=== PATIENT | male | born 1950 | race African-American/Black ===

== ENCOUNTER 2018-12-02 12:40 | Inpatient (IN) | payer MEDICAID, OTHER ==
[2018-12-02] VITALS (8 sets, daily range): BP systolic 113–193; BP diastolic 72–132
[~2018-12-02] VITALS: Ht 175.3 cm; Wt 94.3 kg
[2018-12-02] MEDS ORDERED: methylPREDNISolone SOD SUCC 125 MG/2 ML VL ONE (12:41)
[2018-12-02] MEDS ORDERED: LORazepam 2MG/ML-1ML VIAL ONE (12:45)
[2018-12-02] MEDS ORDERED: SUCCINYLCHOLINE CHLORIDE 20 MG/ML 10ML VIAL IV ONE (12:46)
[2018-12-02] MEDS ORDERED: ETOMIDATE (2MG/ML) 20ML VIAL IV ONE (12:46)
[2018-12-02] MEDS ORDERED: EPINEPHrine HCL 1 MG/10 ML SYRG ONE (12:49)
[2018-12-02] MEDS ORDERED: PROPOFOL 100 ML IV ONE (13:04)
[2018-12-02] MEDS ORDERED: SODIUM CHLORIDE 0.9% 1,000 ML IV ONE (13:26)
[2018-12-02] MEDS ORDERED: ALBUTEROL SULF 2.5 MG/0.5ML(0.5%) NEB SOLN NEB ONE (13:30)
[2018-12-02] MEDS ORDERED: PIPERACILLIN-TAZOB 3.375GM 100 ML IV ONE (13:30)
[2018-12-02] MEDS ORDERED: VANCOMYCIN 1GM/250ML 250 ML IV ONE (13:30)
[2018-12-02] MEDS ORDERED: NOREPINEPHRINE 8 MG/250ML KIT 250 ML IV ONE (13:36)
[2018-12-02 13:40] LABS: Basophils # (auto) 0.1 uL; Eosinophils # (auto) 0.2 uL; Eosinophils % (auto) 1.9 % (0.0-7.0); Hematocrit 47.8 % (41.0-53.0); Hemoglobin 15.4 g/dL (13.5-17.5); Lymphocytes # (auto) 4.6 uL; Lymphocytes % (auto) 38.6 % (10.0-50.0); Mean Corpuscular Hemoglobin 30.1 pg (28.0-32.0); Mean Corpuscular Hgb Conc. 32.3 g/dL (32.0-36.0); Mean Corpuscular Volume 93.4 fL (80.0-100.0); Monocytes % (auto) 8.8 % (0.0-12.0); Neutrophils # (auto) 5.9 uL; Neutrophils % (auto) 49.7 % (37.0-80.0); Nucleated Red Blood Cells % 0.1 %; Platelet Count (auto) 320 10^3/uL (140-450); Red Blood Cells 5.12 10^6/uL (4.5-5.90); Red Cell Distribution Width 14.6 % (11.8-14.3); White Blood Cell 11.8 10^3/uL (4.4-10.8)
[2018-12-02] MEDS: PROPOFOL 100 ML IV SCH (13:50)
[2018-12-02] MEDS: MIDAZOLAM DRIP 50 mg/50mL 50 ML IV SCH (13:50)
[2018-12-02 13:53] LABS: INR 1.05 (0.9-1.15); Partial Thromboplastin Time 25.2 sec (23.78-33.04); Prothrombin Time 11.2 sec (9.27-12.13)
[2018-12-02 13:57] LABS: Potassium 3.2 mmol/L (3.5-5.1)
[2018-12-02 13:58] LABS: Albumin 3.3 g/dL (3.4-5.0); Calcium 8.1 mg/dL (8.5-10.1)
[2018-12-02] MEDS: NOREPINEPHRINE 8 MG/250ML KIT 250 ML IV SCH (14:00)
[2018-12-02 14:04] LABS: BUN/Creatinine Ratio 5.1; Bilirubin, Total 0.6 mg/dL (0.2-1.0); Total Protein 7.3 g/dL (6.4-8.2)
[2018-12-02 14:19] LABS: Lactic Acid w/Reflex 8.9 mmol/L (0.4-2.0)
[2018-12-02] MEDS ORDERED: NITROGLYCERIN 0.4 MG SL TAB SL PRN (15:15)
[2018-12-02] MEDS ORDERED: MORPHINE SULFATE 4 MG/ML SYR/VIAL IV PRN (15:15)
[2018-12-02] MEDS ORDERED: DEXTROSE (50%) 50ML SYRG IV PRN (15:30)
[2018-12-02] MEDS ORDERED: FUROSEMIDE 40 MG/4 ML VIAL IV ONE (15:30)
[2018-12-02] MEDS ORDERED: ENOXAPARIN SOD 40 MG/0.4 ML SYRINGE SC ONE (15:30)
[2018-12-02] MEDS: DOBUTamine 1000MCG/ML 250 ML IV SCH (16:31)
[2018-12-02] MEDS: POTASSIUM CHL 20MEQ/100ML 100 ML IV SCH ×2 (16:33→18:17)
[2018-12-02 16:42] LABS: Urine Amorphous Crystal FEW /hpf (None Seen); Urine Bacteria NONE SEEN /hpf (None Seen); Urine Blood Negative /uL (Negative); Urine Specific Gravity 1.017 (1.001-1.035); Urine Sperm PRESENT /hpf (None Seen); Urine WBC 112 /hpf (0 - 3)
[2018-12-02] MEDS: ACCU-CHEK COMFORT CURVE STRIP VI SCH ×2 (16:59→23:01)
[2018-12-02] MEDS: InsuLIN REG 1unit/0.01ml Soln (100units/ml) SC SCH ×2 (17:03→23:06)
[2018-12-02] MEDS: IPRATROPIUM BROM 0.5 MG/2.5ML INH SOL NEB SCH (18:28)
[2018-12-02] MEDS: ALBUTEROL SULF 2.5 MG/0.5ML(0.5%) NEB SOLN NEB SCH (18:28)
[2018-12-02] MEDS: cefTRIAXone 1GM/50ML D5W 50 ML IV SCH (21:15)
[2018-12-02] MEDS ORDERED: ENOXAPARIN SOD 100 MG/1 ML SYRINGE SC ONE (23:45)
[2018-12-03] VITALS (11 sets, daily range): BP systolic 96–139; BP diastolic 58–84
[2018-12-03] MEDS: IPRATROPIUM BROM 0.5 MG/2.5ML INH SOL NEB SCH ×4 (00:29→18:30)
[2018-12-03] MEDS: ALBUTEROL SULF 2.5 MG/0.5ML(0.5%) NEB SOLN NEB SCH ×4 (00:29→18:30)
[2018-12-03] MEDS: DOBUTamine 1000MCG/ML 250 ML IV SCH ×3 (03:42→22:09)
[2018-12-03] MEDS: fentaNYL Drip 2500mCg/250mlNS 250 ML IV SCH ×2 (05:34→15:49)
[2018-12-03 06:09] LABS: Basophils # (auto) 0.1 uL; Basophils % (auto) 0.5 % (0.0-2.0); Eosinophils # (auto) 0 uL; Hematocrit 48.9 % (41.0-53.0); Hemoglobin 15.9 g/dL (13.5-17.5); Lymphocytes # (auto) 1.5 uL; Lymphocytes % (auto) 10.2 % (10.0-50.0); Mean Corpuscular Hemoglobin 30.4 pg (28.0-32.0); Mean Corpuscular Hgb Conc. 32.5 g/dL (32.0-36.0); Mean Corpuscular Volume 93.4 fL (80.0-100.0); Monocytes # (auto) 1.7 uL; Monocytes % (auto) 11.2 % (0.0-12.0); Neutrophils # (auto) 11.5 uL; Neutrophils % (auto) 78.1 % (37.0-80.0); Nucleated Red Blood Cells % 0.1 %; Platelet Count (auto) 282 10^3/uL (140-450); Red Blood Cells 5.23 10^6/uL (4.5-5.90); Red Cell Distribution Width 14.8 % (11.8-14.3); White Blood Cell 14.7 10^3/uL (4.4-10.8)
[2018-12-03 06:25] LABS: INR 1.02 (0.9-1.15); Partial Thromboplastin Time 30.6 sec (23.78-33.04); Prothrombin Time 10.9 sec (9.27-12.13)
[2018-12-03 06:28] LABS: Calcium 8.5 mg/dL (8.5-10.1); Magnesium 2.3 mg/dL (1.6-2.6)
[2018-12-03 06:34] LABS: BUN/Creatinine Ratio 6.3
[2018-12-03] MEDS: InsuLIN REG 1unit/0.01ml Soln (100units/ml) SC SCH ×4 (07:00→22:00)
[2018-12-03] MEDS: ACCU-CHEK COMFORT CURVE STRIP VI SCH ×4 (07:00→22:00)
[2018-12-03] MEDS: cefTRIAXone 1GM/50ML D5W 50 ML IV SCH ×2 (10:00→20:39)
[2018-12-03] MEDS: FUROSEMIDE 40 MG/4 ML VIAL IV SCH (10:00)
[2018-12-03] MEDS: AZITHROMYCIN 500MG/ 250ML 250 ML IV SCH (10:30)
[2018-12-03 12:54] LABS: Lactic Acid w/Reflex 2.3 mmol/L (0.4-2.0)
[2018-12-03] MEDS: MIDAZOLAM DRIP 50 mg/50mL 50 ML IV SCH ×2 (13:59→16:01)
[2018-12-03] MEDS: PROPOFOL 100 ML IV SCH ×2 (13:59→15:00)
[2018-12-03] MEDS: NOREPINEPHRINE 8 MG/250ML KIT 250 ML IV SCH (14:00)
[2018-12-04] VITALS (13 sets, daily range): BP systolic 125–142; BP diastolic 78–86
[2018-12-04] MEDS: IPRATROPIUM BROM 0.5 MG/2.5ML INH SOL NEB SCH ×3 (06:10→18:00)
[2018-12-04] MEDS: ALBUTEROL SULF 2.5 MG/0.5ML(0.5%) NEB SOLN NEB SCH ×3 (06:10→18:00)
[2018-12-04 06:34] LABS: Basophils # (auto) 0.1 uL; Basophils % (auto) 0.4 % (0.0-2.0); Eosinophils # (auto) 0 uL; Eosinophils % (auto) 0.1 % (0.0-7.0); Hematocrit 44.8 % (41.0-53.0); Hemoglobin 14.8 g/dL (13.5-17.5); Lymphocytes # (auto) 1.4 uL; Lymphocytes % (auto) 6.3 % (10.0-50.0); Mean Corpuscular Hgb Conc. 33.1 g/dL (32.0-36.0); Mean Corpuscular Volume 90.6 fL (80.0-100.0); Monocytes # (auto) 3.2 uL; Monocytes % (auto) 14.7 % (0.0-12.0); Neutrophils # (auto) 17.2 uL; Neutrophils % (auto) 78.5 % (37.0-80.0); Platelet Count (auto) 279 10^3/uL (140-450); Red Blood Cells 4.94 10^6/uL (4.5-5.90); Red Cell Distribution Width 14.8 % (11.8-14.3); White Blood Cell 21.9 10^3/uL (4.4-10.8)
[2018-12-04 06:48] LABS: Potassium 4.7 mmol/L (3.5-5.1)
[2018-12-04 06:51] LABS: BUN/Creatinine Ratio 8.1
[2018-12-04 06:53] LABS: Bilirubin, Total 0.7 mg/dL (0.2-1.0)
[2018-12-04] MEDS: ACCU-CHEK COMFORT CURVE STRIP VI SCH ×4 (09:00→22:10)
[2018-12-04] MEDS: DOBUTamine 1000MCG/ML 250 ML IV SCH ×2 (09:15→19:22)
[2018-12-04] MEDS: InsuLIN REG 1unit/0.01ml Soln (100units/ml) SC SCH ×4 (10:14→22:14)
[2018-12-04] MEDS: cefTRIAXone 1GM/50ML D5W 50 ML IV SCH ×2 (10:20→22:20)
[2018-12-04] MEDS: FUROSEMIDE 40 MG/4 ML VIAL IV SCH (10:20)
[2018-12-04] MEDS: AZITHROMYCIN 500MG/ 250ML 250 ML IV SCH (10:20)
[2018-12-04] MEDS: PANTOPRAZOLE 40 MG/10 ML VIAL IV SCH (10:20)
[2018-12-04] MEDS ORDERED: LIDOCAINE 2%HCL (LOCAL ANESTH.) INJ 20ML MDV ONE (14:40)
[2018-12-04] MEDS ORDERED: HEPARIN IN NS 1000Units/500mL 0 ML ONE (14:40)
[2018-12-04] MEDS ORDERED: IODIXANOL 320MG/ML 100ML BTL IV ONE (14:40)
[2018-12-04] MEDS: fentaNYL Drip 2500mCg/250mlNS 250 ML IV SCH (16:37)
[2018-12-04] MEDS: NOREPINEPHRINE 8 MG/250ML KIT 250 ML IV SCH (16:37)
[2018-12-04] MEDS ORDERED: DIGOXIN (250MCG/ML) 2 ML AMPULE IV ONE (20:45)
[2018-12-05] VITALS (89 sets, daily range): BP systolic 93–148; BP diastolic 54–99
[2018-12-05] MEDS: PROPOFOL 100 ML IV SCH ×6 (02:55→22:30)
[2018-12-05 04:02] LABS: Basophils # (auto) 0.1 uL; Basophils % (auto) 0.5 % (0.0-2.0); Eosinophils # (auto) 0.1 uL; Eosinophils % (auto) 0.3 % (0.0-7.0); Hematocrit 43.3 % (41.0-53.0); Hemoglobin 14.3 g/dL (13.5-17.5); Lymphocytes # (auto) 2.2 uL; Lymphocytes % (auto) 12.6 % (10.0-50.0); Mean Corpuscular Volume 90.8 fL (80.0-100.0); Monocytes # (auto) 2.8 uL; Monocytes % (auto) 16.1 % (0.0-12.0); Neutrophils # (auto) 12.2 uL; Neutrophils % (auto) 70.5 % (37.0-80.0); Nucleated Red Blood Cells % 0.1 %; Platelet Count (auto) 290 10^3/uL (140-450); Red Blood Cells 4.77 10^6/uL (4.5-5.90); Red Cell Distribution Width 14.6 % (11.8-14.3); White Blood Cell 17.3 10^3/uL (4.4-10.8)
[2018-12-05 04:29] LABS: Albumin 2.9 g/dL (3.4-5.0); BUN/Creatinine Ratio 10.6; Bilirubin, Total 0.7 mg/dL (0.2-1.0); Calcium 8.3 mg/dL (8.5-10.1); Potassium 3.9 mmol/L (3.5-5.1); Total Protein 7.2 g/dL (6.4-8.2)
[2018-12-05] MEDS: DOBUTamine 1000MCG/ML 250 ML IV SCH (04:48)
[2018-12-05] MEDS: IPRATROPIUM BROM 0.5 MG/2.5ML INH SOL NEB SCH ×3 (06:02→18:16)
[2018-12-05] MEDS: ALBUTEROL SULF 2.5 MG/0.5ML(0.5%) NEB SOLN NEB SCH ×3 (06:02→18:16)
[2018-12-05] MEDS: InsuLIN REG 1unit/0.01ml Soln (100units/ml) SC SCH ×4 (06:49→22:00)
[2018-12-05] MEDS: ACCU-CHEK COMFORT CURVE STRIP VI SCH ×4 (06:49→22:00)
[2018-12-05] MEDS ORDERED: IODIXANOL 320MG/ML 100ML BTL IV ONE (08:19)
[2018-12-05] MEDS ORDERED: ATROPINE SULF 1 MG/10ml SYR ONE (08:24)
[2018-12-05] MEDS ORDERED: EPINEPHrine HCL 1 MG/10 ML SYRG ONE (08:24)
[2018-12-05] MEDS ORDERED: FUROSEMIDE 20 MG/2 ML VIAL ONE (08:34)
[2018-12-05] MEDS: cefTRIAXone 1GM/50ML D5W 50 ML IV SCH ×2 (09:00→20:50)
[2018-12-05] MEDS: FUROSEMIDE 40 MG/4 ML VIAL IV SCH ×4 (10:00→19:30)
[2018-12-05] MEDS: LISINOPRIL 10 MG TAB NG SCH ×2 (10:02→21:51)
[2018-12-05] MEDS: PANTOPRAZOLE 40 MG/10 ML VIAL IV SCH (10:02)
[2018-12-05] MEDS: AZITHROMYCIN 500MG/ 250ML 250 ML IV SCH (10:02)
[2018-12-05] MEDS: CARVEDILOL 3.125 MG TAB NG SCH ×2 (10:02→21:52)
[2018-12-05] MEDS ORDERED: Glucerna 1.2 Cal 1Liter BOTTLE GT SCH (11:15)
[2018-12-05] MEDS: MIDAZOLAM DRIP 50 mg/50mL 50 ML IV SCH (12:30)
[2018-12-05] MEDS: NOREPINEPHRINE 8 MG/250ML KIT 250 ML IV SCH (12:31)
[2018-12-05] MEDS: fentaNYL Drip 2500mCg/250mlNS 250 ML IV SCH (15:49)
[2018-12-06] VITALS (79 sets, daily range): BP systolic 88–155; BP diastolic 46–116
[2018-12-06] MEDS: IPRATROPIUM BROM 0.5 MG/2.5ML INH SOL NEB SCH ×4 (00:20→19:45)
[2018-12-06] MEDS: ALBUTEROL SULF 2.5 MG/0.5ML(0.5%) NEB SOLN NEB SCH ×4 (00:20→19:45)
[2018-12-06] MEDS: PROPOFOL 100 ML IV SCH ×2 (01:23→05:08)
[2018-12-06 04:01] LABS: Basophils # (auto) 0.1 uL; Basophils % (auto) 0.5 % (0.0-2.0); Eosinophils # (auto) 0.1 uL; Eosinophils % (auto) 1.1 % (0.0-7.0); Hematocrit 47.5 % (41.0-53.0); Hemoglobin 15.4 g/dL (13.5-17.5); Lymphocytes # (auto) 2.4 uL; Lymphocytes % (auto) 17.8 % (10.0-50.0); Mean Corpuscular Hemoglobin 29.8 pg (28.0-32.0); Mean Corpuscular Hgb Conc. 32.4 g/dL (32.0-36.0); Mean Corpuscular Volume 92.1 fL (80.0-100.0); Monocytes # (auto) 1.9 uL; Monocytes % (auto) 14.3 % (0.0-12.0); Neutrophils # (auto) 8.8 uL; Neutrophils % (auto) 66.3 % (37.0-80.0); Nucleated Red Blood Cells % 0.1 %; Platelet Count (auto) 304 10^3/uL (140-450); Red Blood Cells 5.15 10^6/uL (4.5-5.90); Red Cell Distribution Width 14.6 % (11.8-14.3); White Blood Cell 13.2 10^3/uL (4.4-10.8)
[2018-12-06 04:02] LABS: Albumin 3.1 g/dL (3.4-5.0); Calcium 8.7 mg/dL (8.5-10.1); Potassium 3.9 mmol/L (3.5-5.1)
[2018-12-06 04:06] LABS: BUN/Creatinine Ratio 16.7; Bilirubin, Total 0.6 mg/dL (0.2-1.0); Total Protein 7.7 g/dL (6.4-8.2)
[2018-12-06] MEDS: ACCU-CHEK COMFORT CURVE STRIP VI SCH ×4 (07:00→22:01)
[2018-12-06] MEDS: InsuLIN REG 1unit/0.01ml Soln (100units/ml) SC SCH ×4 (07:00→22:00)
[2018-12-06] MEDS: cefTRIAXone 1GM/50ML D5W 50 ML IV SCH ×2 (09:17→21:00)
[2018-12-06] MEDS: LISINOPRIL 10 MG TAB NG SCH ×2 (09:46→21:49)
[2018-12-06] MEDS: PANTOPRAZOLE 40 MG/10 ML VIAL IV SCH (09:46)
[2018-12-06] MEDS: CARVEDILOL 3.125 MG TAB NG SCH ×3 (09:46→21:50)
[2018-12-06] MEDS: MIDAZOLAM DRIP 50 mg/50mL 50 ML IV SCH (13:50)
[2018-12-06] MEDS: NOREPINEPHRINE 8 MG/250ML KIT 250 ML IV SCH (14:00)
[2018-12-06] MEDS: fentaNYL Drip 2500mCg/250mlNS 250 ML IV SCH (14:06)
[2018-12-06] MEDS: FUROSEMIDE 40 MG/4 ML VIAL IV SCH (18:00)
[2018-12-07] VITALS (25 sets, daily range): BP systolic 87–146; BP diastolic 48–78
[2018-12-07 03:48] LABS: Basophils # (auto) 0.1 uL; Basophils % (auto) 0.4 % (0.0-2.0); Eosinophils # (auto) 0.5 uL; Eosinophils % (auto) 3.4 % (0.0-7.0); Hematocrit 49.3 % (41.0-53.0); Hemoglobin 16.4 g/dL (13.5-17.5); Lymphocytes # (auto) 2.2 uL; Lymphocytes % (auto) 14.9 % (10.0-50.0); Mean Corpuscular Hemoglobin 30.3 pg (28.0-32.0); Mean Corpuscular Hgb Conc. 33.2 g/dL (32.0-36.0); Monocytes % (auto) 13.2 % (0.0-12.0); Neutrophils # (auto) 10.1 uL; Neutrophils % (auto) 68.1 % (37.0-80.0); Nucleated Red Blood Cells % 0.1 %; Platelet Count (auto) 284 10^3/uL (140-450); Red Blood Cells 5.42 10^6/uL (4.5-5.90); Red Cell Distribution Width 14.3 % (11.8-14.3); White Blood Cell 14.9 10^3/uL (4.4-10.8)
[2018-12-07 04:12] LABS: Albumin 3.3 g/dL (3.4-5.0); Potassium 3.3 mmol/L (3.5-5.1)
[2018-12-07 04:14] LABS: BUN/Creatinine Ratio 22.7
[2018-12-07 04:17] LABS: Bilirubin, Total 1.1 mg/dL (0.2-1.0); Total Protein 8.2 g/dL (6.4-8.2)
[2018-12-07] MEDS ORDERED: POTASSIUM CHL 20 Meq TABLET PO ONE ×2 (05:00→11:45)
[2018-12-07] MEDS: FUROSEMIDE 40 MG/4 ML VIAL IV SCH ×2 (06:24→17:33)
[2018-12-07] MEDS: ALBUTEROL SULF 2.5 MG/0.5ML(0.5%) NEB SOLN NEB SCH ×4 (06:25→19:28)
[2018-12-07] MEDS: IPRATROPIUM BROM 0.5 MG/2.5ML INH SOL NEB SCH ×4 (06:25→19:28)
[2018-12-07] MEDS: InsuLIN REG 1unit/0.01ml Soln (100units/ml) SC SCH ×4 (06:35→22:58)
[2018-12-07] MEDS: ACCU-CHEK COMFORT CURVE STRIP VI SCH ×4 (06:35→22:58)
[2018-12-07] MEDS: cefTRIAXone 1GM/50ML D5W 50 ML IV SCH ×2 (09:16→22:57)
[2018-12-07] MEDS: PANTOPRAZOLE 40 MG/10 ML VIAL IV SCH (10:06)
[2018-12-07] MEDS: LISINOPRIL 10 MG TAB NG SCH ×2 (10:07→22:58)
[2018-12-07] MEDS ORDERED: POTASSIUM CHL 20MEQ/100ML 100 ML IV SCH (11:00)
[2018-12-07] MEDS: CARVEDILOL 3.125 MG TAB NG SCH (22:57)
[2018-12-08] MEDS: IPRATROPIUM BROM 0.5 MG/2.5ML INH SOL NEB SCH ×4 (00:53→19:15)
[2018-12-08] MEDS: ALBUTEROL SULF 2.5 MG/0.5ML(0.5%) NEB SOLN NEB SCH ×4 (00:53→19:15)
[2018-12-08 05:00] VITALS: BP 94/57
[2018-12-08] MEDS: InsuLIN REG 1unit/0.01ml Soln (100units/ml) SC SCH ×2 (05:35→12:00)
[2018-12-08] MEDS: ACCU-CHEK COMFORT CURVE STRIP VI SCH ×2 (05:35→12:00)
[2018-12-08] MEDS: FUROSEMIDE 40 MG/4 ML VIAL IV SCH (05:35)
[2018-12-08 09:00] VITALS: BP 89/61
[2018-12-08] MEDS: cefTRIAXone 1GM/50ML D5W 50 ML IV SCH (09:11)
[2018-12-08] MEDS: LISINOPRIL 10 MG TAB NG SCH (10:00)
[2018-12-08] MEDS: PANTOPRAZOLE 40 MG/10 ML VIAL IV SCH (10:00)
[2018-12-08] MEDS: CARVEDILOL 3.125 MG TAB NG SCH (10:00)
[2018-12-08 13:33] VITALS: BP 100/57
[2018-12-08] MEDS ORDERED: MORPHINE SULFATE 4 MG/ML SYR/VIAL IV PRN (15:15)
[2018-12-08] MEDS ORDERED: CEPH-37 PO (15:37)
[2018-12-08] MEDS ORDERED: ASPI81CH43 PO (15:37)
[2018-12-08] MEDS ORDERED: CAR3125T NG (15:37)
[2018-12-08] MEDS ORDERED: ENA2.5T PO (15:37)
[2018-12-08] MEDS ORDERED: ATOR10TA52 PO (15:37)
[2018-12-08 16:01] VITALS: BP 89/61
== END 2018-12-08 19:22 | disposition home or self-care (01) | DRG 720 ==
LOC: ER 12:40 → ICU CENTRL 15:24 → TELE 12-03 23:25 → ICU WEST 12-04 23:56 → TELE-WESTW 12-07 12:23
PROVIDERS: ADMIT Nurse Practitioner Acute Care; ATTEND Internal Medicine
PROC: 5A1945Z Respiratory Ventilation, 24-96 Consecutive Hours (ICD-10-PCS; principal; 2018-12-02)
PROC: 0BH17EZ Insertion of Endotracheal Airway into Trachea, Via Natural or Artificial Opening (ICD-10-PCS; 2018-12-02)
PROC: 5A12012 Performance of Cardiac Output, Single, Manual (ICD-10-PCS; 2018-12-02)
PROC: 02HV33Z Insertion of Infusion Device into Superior Vena Cava, Percutaneous Approach (ICD-10-PCS; 2018-12-02)
PROC: 4A023N7 Measurement of Cardiac Sampling and Pressure, Left Heart, Percutaneous Approach (ICD-10-PCS; 2018-12-05)
PROC: B2111ZZ Fluoroscopy of Multiple Coronary Arteries using Low Osmolar Contrast (ICD-10-PCS; 2018-12-05)
PROC: B2151ZZ Fluoroscopy of Left Heart using Low Osmolar Contrast (ICD-10-PCS; 2018-12-05)
PROC: 0W993ZZ Drainage of Right Pleural Cavity, Percutaneous Approach (ICD-10-PCS; 2018-12-05)
DX: A41.9 Sepsis, unspecified organism (principal); I21.4 Non-ST elevation (NSTEMI) myocardial infarction; I46.9 Cardiac arrest, cause unspecified; I50.43 Acute on chronic combined systolic (congestive) and diastolic (congestive) heart failure; J96.01 Acute respiratory failure with hypoxia; J15.0 Pneumonia due to Klebsiella pneumoniae; E44.0 Moderate protein-calorie malnutrition; I13.0 Hypertensive heart and chronic kidney disease with heart failure and stage 1 through stage 4 chronic kidney disease, or unspecified chronic kidney disease; I42.9 Cardiomyopathy, unspecified; N17.9 Acute kidney failure, unspecified; E11.22 Type 2 diabetes mellitus with diabetic chronic kidney disease; E11.65 Type 2 diabetes mellitus with hyperglycemia; E87.2 Acidosis; E87.6 Hypokalemia; N18.3 Chronic kidney disease, stage 3 (moderate); I25.10 Atherosclerotic heart disease of native coronary artery without angina pectoris; J44.0 Chronic obstructive pulmonary disease with (acute) lower respiratory infection; Z68.30 Body mass index [BMI] 30.0-30.9, adult; Z79.4 Long term (current) use of insulin; Z79.899 Other long term (current) drug therapy
CPT/HCPCS: 10022; 31500; 32555; 36415; 36556; 36600; 51702; 70450; 71045; 71250; 74176; 76604; 76942; 80048; 80053; 80061; 81001; 82805; 82962; 83036; 83605; 83735; 83880; 83986; 84439; 84443; 84484; 85025; 85610; 85730; 87040; 87070; 87077; 87081; 87086; 87186; 87205; 87804; 89051; 92610; 92950; 93005; 93306; 93458; 94002; 94003; 94640; 96365; 96368; 97116; 97163; 97530; 99152; 99291; A4565; A6257; C9113; G0378; J0330; J0696; J1815; J2250; J2543; J2704; J3480; Q9967

== ENCOUNTER 2019-09-30 09:10 | Inpatient (IN) | payer MEDICAID, OTHER ==
[~2019-09-30] VITALS: Ht 170.2 cm; Wt 105.8 kg
[~2019-09-30 09:10] MED LIST: ASPI81CH43 PO; ATOR10TA52 PO; CAR3125T NG; CEPH-37 PO; ENAL2.5T2 PO
[2019-09-30] MEDS ORDERED: SODIUM CHLORIDE 0.9% 1,000 ML IV ONE ×2 (09:19→09:45)
[2019-09-30] MEDS ORDERED: ALBUTEROL SULF 2.5 MG/0.5ML(0.5%) NEB SOLN ONE (09:19)
[2019-09-30] MEDS ORDERED: IPRATROPIUM BROM 0.5 MG/2.5ML INH SOL ONE (09:19)
[2019-09-30] MEDS ORDERED: methylPREDNISolone SOD SUCC 125 MG/2 ML VL ONE (09:23)
[2019-09-30] MEDS ORDERED: IPRATROPIUM BROM 0.5 MG/2.5ML INH SOL NEB ONE (09:30)
[2019-09-30] MEDS ORDERED: ALBUTEROL SULF 2.5 MG/0.5ML(0.5%) NEB SOLN NEB ONE (09:30)
[2019-09-30] MEDS ORDERED: methylPREDNISolone SOD SUCC 125 MG/2 ML VL IV ONE (09:30)
[2019-09-30 09:49] LABS: Basophils # (auto) 0.1 uL; Basophils % (auto) 0.9 % (0.0-2.0); Eosinophils # (auto) 0.5 uL; Eosinophils % (auto) 3.2 % (0.0-7.0); Hematocrit 50.2 % (41.0-53.0); Hemoglobin 16.1 g/dL (13.5-17.5); Lymphocytes # (auto) 6.1 uL; Lymphocytes % (auto) 42.7 % (10.0-50.0); Mean Corpuscular Hemoglobin 30.1 pg (28.0-32.0); Mean Corpuscular Volume 94.1 fL (80.0-100.0); Monocytes # (auto) 1.2 uL; Monocytes % (auto) 8.7 % (0.0-12.0); Neutrophils # (auto) 6.3 uL; Neutrophils % (auto) 44.5 % (37.0-80.0); Nucleated Red Blood Cells % 0.1 %; Platelet Count (auto) 258 10^3/uL (140-450); Red Blood Cells 5.34 10^6/uL (4.5-5.90); Red Cell Distribution Width 14.9 % (11.8-14.3); White Blood Cell 14.2 10^3/uL (4.4-10.8)
[2019-09-30 10:03] LABS: Albumin 3.6 g/dL (3.4-5.0); BUN/Creatinine Ratio 7.4; Calcium 8.6 mg/dL (8.5-10.1); Magnesium 2.3 mg/dL (1.6-2.6); Potassium 3.6 mmol/L (3.5-5.1)
[2019-09-30 10:19] LABS: Bilirubin, Total 0.9 mg/dL (0.2-1.0)
[2019-09-30 10:43] LABS: INR 1.01 (0.9-1.15)
[2019-09-30] MEDS ORDERED: SPIRONOLACTONE 25 MG TAB PO ONE (11:00)
[2019-09-30] MEDS ORDERED: FUROSEMIDE 40 MG/4 ML VIAL IV ONE (11:00)
[2019-09-30] MEDS ORDERED: IOHEXOL 350 MG/ML 100ML IJ ONE (11:05)
[2019-09-30] MEDS ORDERED: LACTULOSE 20Gm/30ML SOLN PO PRN (13:00)
[2019-09-30] MEDS ORDERED: traMADol HCL 50 MG TAB PO PRN (13:00)
[2019-09-30] MEDS ORDERED: MORPHINE SULFATE 4 MG/ML SYR/VIAL IV PRN (13:00)
[2019-09-30] MEDS ORDERED: PROMETHAZINE HCL 25 MG/ML 1ML IV PRN (13:00)
[2019-09-30] MEDS ORDERED: ALBUTEROL SULF 2.5 MG/0.5ML(0.5%) NEB SOLN NEB PRN (13:00)
[2019-09-30] MEDS ORDERED: MORPHINE SULF INJ 2 MG/ML SYRINGE 1ML IV PRN (13:00)
[2019-09-30] MEDS ORDERED: NITROGLYCERIN 0.4 MG SL TAB SL PRN (13:00)
[2019-09-30] MEDS ORDERED: TEMAZEPAM 15 MG CAP PO PRN (13:00)
[2019-09-30] MEDS ORDERED: ACETAMINOPHEN 500 MG TAB PO PRN (13:00)
[2019-09-30] MEDS ORDERED: ENOXAPARIN SOD 40 MG/0.4 ML SYRINGE SC ONE (13:11)
[2019-09-30] MEDS ORDERED: POTASSIUM CHL 20 Meq TABLET PO ONE (13:15)
[2019-09-30] MEDS: LEVOFLOXACIN 500MG 100 ML IV SCH (13:23)
[2019-09-30 13:39] LABS: Alcohol, Urine < 3.0 mg/dL (0-5); Amphetamine Screen, Urine NEGATIVE (NEGATIVE); Barbiturate Scree,Urine NEGATIVE (NEGATIVE); Benzodiazephine Screen, Urine NEGATIVE (NEGATIVE); Cannabinoid Screen, Urine NEGATIVE (NEGATIVE); Cocaine Screen, Urine NEGATIVE (NEGATIVE); Opiate Scree,Urine NEGATIVE (NEGATIVE); Phencyclidine Screen, Urine NEGATIVE (NEGATIVE)
--- NOTE | 2019-09-30 13:44 | NUR ---
received report form LALO El in ER
[2019-09-30] MEDS ORDERED: DEXTROSE (50%) 50ML SYRG IV PRN (14:00)
[2019-09-30] MEDS: SODIUM CHLOR 0.9% PF (SALINE LOCK) 10ML VIAL/SYR IV SCH ×2 (14:46→22:29)
--- NOTE | 2019-09-30 14:57 | NUR ---
Telemetry admit from JEREM[facility] VANGVI admitted to Telemetry unit after SBAR received. Patient oriented to Mckenna Paul, primary RN, unit, room, bed, and unit policies regarding patient care and visiting hours. Patient now on continuous telemetry monitoring, tele box # 82 and telemetry reading on arrival to unit is SINUS RHYTM AT 91BPM. Patient placed on bedside oxygen, weighed by bed scale and encouraged to call if they need something. All questions and concerns addressed, patient verbalized understanding.
[2019-09-30 15:00] VITALS: BP 143/80
[2019-09-30] MEDS: ACCU-CHEK COMFORT CURVE STRIP VI SCH ×2 (16:48→22:29)
[2019-09-30] MEDS: InsuLIN REG 1unit/0.01ml Soln (100units/ml) SC SCH ×2 (16:48→22:28)
[2019-09-30 17:00] VITALS: BP 135/78
--- NOTE | 2019-09-30 19:10 | NUR ---
Respiratory note: ASSESSED PT FOR PRN MED NEB AT THIS TIME, PT DENIES SOB AT THIS TIME, NO RESP DISTRESS NOTED, NO TX INDICATED, PULSE OX 94% ON 5LNC, HR 111, RR 20, BILATERAL BS CRACKLES
--- NOTE | 2019-09-30 19:14 | NUR ---
Respiratory note: PULSE OX AND O2 DELIVERY ASSESSMENTS AT THIS TIME INCORRECT. CHARTED FOR WRONG PT.
--- NOTE | 2019-09-30 19:15 | NUR ---
Opening Shift Note Assumed care of patient, awake and alert. No S/S of distress/SOB or pain. Bed is in lowest position and locked in place. Instructed on POC and to call for assist PRN, will continue to monitor for changes Q1hr and PRN.
[2019-09-30 20:31] VITALS: BP 135/78
[2019-09-30 22:00] VITALS: BP 119/72
[2019-09-30] MEDS ORDERED: ATORVASTATIN 20 MG TAB PO SCH (22:00)
[2019-09-30] MEDS ORDERED: CARVEDILOL 3.125 MG TAB NG SCH (22:00)
[2019-09-30] MEDS: ENALAPRIL MALEATE 2.5 MG TAB PO SCH (22:16)
[2019-09-30] MEDS: FUROSEMIDE 40 MG/4 ML VIAL IV SCH (22:18)
[2019-10-01 05:14] VITALS: BP 101/69
[2019-10-01] MEDS: SODIUM CHLOR 0.9% PF (SALINE LOCK) 10ML VIAL/SYR IV SCH ×3 (06:26→22:16)
[2019-10-01] MEDS: ACCU-CHEK COMFORT CURVE STRIP VI SCH ×4 (06:27→22:17)
[2019-10-01] MEDS: InsuLIN REG 1unit/0.01ml Soln (100units/ml) SC SCH ×2 (06:27→17:17)
[2019-10-01 06:43] LABS: Basophils # (auto) 0.1 uL; Basophils % (auto) 0.4 % (0.0-2.0); Eosinophils # (auto) 0 uL; Eosinophils % (auto) 0.2 % (0.0-7.0); Hematocrit 45.2 % (41.0-53.0); Lymphocytes % (auto) 12.7 % (10.0-50.0); Mean Corpuscular Hemoglobin 30.6 pg (28.0-32.0); Mean Corpuscular Hgb Conc. 33.2 g/dL (32.0-36.0); Monocytes # (auto) 1.4 uL; Monocytes % (auto) 8.9 % (0.0-12.0); Neutrophils # (auto) 12.3 uL; Neutrophils % (auto) 77.8 % (37.0-80.0); Platelet Count (auto) 238 10^3/uL (140-450); Red Blood Cells 4.91 10^6/uL (4.5-5.90); Red Cell Distribution Width 14.4 % (11.8-14.3); White Blood Cell 15.8 10^3/uL (4.4-10.8)
[2019-10-01 06:58] LABS: Potassium 4.4 mmol/L (3.5-5.1)
[2019-10-01 07:20] LABS: Albumin 3.5 g/dL (3.4-5.0); BUN/Creatinine Ratio 12.1; Bilirubin, Total 0.9 mg/dL (0.2-1.0); Total Protein 7.4 g/dL (6.4-8.2)
--- NOTE | 2019-10-01 07:44 | NUR ---
PRN [place] TX NOT INDICATED AT THIS TIME. PT DENIES SOB OR ANY OTHER RESPIRATORY DISTRESS. PT ON 4L/MIN VIA NC, 94% O2 SATS, HR 76 BPM, RR20 BPM. BS ARE BIBASILARLY DIMINISHED TO AUSCULTATION. PT INSTRUCTED TO CALL IF [place] TX IS INDICATED. PT VERBALIZED UNDERSTANDING. WILL CONTINUE TO MONITOR PT.
[2019-10-01 09:00] VITALS: BP 123/91
[2019-10-01] MEDS: POTASSIUM CHL 20 Meq TABLET PO SCH (09:49)
[2019-10-01] MEDS: ASPirin 81 mg TAB PO SCH (09:49)
[2019-10-01] MEDS: LEVOFLOXACIN 500MG 100 ML IV SCH (09:49)
[2019-10-01] MEDS: CARVEDILOL 3.125 MG TAB NG SCH ×2 (09:50→22:19)
[2019-10-01] MEDS: ENALAPRIL MALEATE 2.5 MG TAB PO SCH ×2 (09:50→22:17)
[2019-10-01] MEDS: NITROGLYCERIN 0.2MG/HR TOPICAL PATCH TD SCH (09:51)
[2019-10-01] MEDS: ENOXAPARIN SOD 40 MG/0.4 ML SYRINGE SC SCH (09:51)
[2019-10-01] MEDS: FUROSEMIDE 40 MG/4 ML VIAL IV SCH ×2 (09:52→22:16)
[2019-10-01] MEDS ORDERED: methylPREDNISolone SOD SUCC 40 MG/ML VL IV ONE (11:45)
--- NOTE | 2019-10-01 11:45 | NUR ---
PT SEEN BY DR. CANTU RECEIVED ORDER TO INCREASE INSULIN COVERAGE TO AGGRESSIVE SLIDING SCALE, ATROVENT AND ALBUTEROL BREATHING TREATMENT SCHEDULE Q6HRS, SOLUMEDROL 60MG IV Q12HRS. ORDERS READBACK AND VERIFIED.
[2019-10-01] MEDS ORDERED: METO25TA5 PO (11:52)
[2019-10-01] MEDS ORDERED: DEXTROSE (50%) 50ML SYRG IV PRN (12:00)
[2019-10-01] MEDS: ALBUTEROL SULF 2.5 MG/0.5ML(0.5%) NEB SOLN NEB SCH ×2 (12:01→19:06)
[2019-10-01] MEDS: IPRATROPIUM BROM 0.5 MG/2.5ML INH SOL NEB SCH ×2 (12:01→19:06)
[2019-10-01 13:00] VITALS: BP 111/73
[2019-10-01 17:00] VITALS: BP 114/74
[2019-10-01 22:00] VITALS: BP 125/83
[2019-10-01] MEDS ORDERED: InsuLIN REG 1unit/0.01ml Soln (100units/ml) SC SCH (22:00)
[2019-10-01] MEDS ORDERED: ATORVASTATIN 20 MG TAB PO SCH (22:00)
[2019-10-01] MEDS: methylPREDNISolone SOD SUCC 125 MG/2 ML VL IV SCH (22:16)
[2019-10-02] MEDS: IPRATROPIUM BROM 0.5 MG/2.5ML INH SOL NEB SCH ×3 (00:27→12:12)
[2019-10-02] MEDS: ALBUTEROL SULF 2.5 MG/0.5ML(0.5%) NEB SOLN NEB SCH ×3 (00:27→12:12)
--- NOTE | 2019-10-02 02:15 | NUR ---
REPORT FROM NOC SHIFT LALO MACARIO
--- NOTE | 2019-10-02 02:20 | NUR ---
Care endorsed to LALO Sotelo
--- NOTE | 2019-10-02 02:30 | NUR ---
PT RESTING IN BED WITH EYES CLOSED. RESPIRATIONS EQUAL AND UNLABORED. TELE [address] NO S/S OF DISTRESS OR DISCOMFORT, WILL CONTINUE TO MONITOR.
[2019-10-02 04:59] VITALS: BP 113/79
[2019-10-02] MEDS: SODIUM CHLOR 0.9% PF (SALINE LOCK) 10ML VIAL/SYR IV SCH ×2 (06:03→14:00)
[2019-10-02] MEDS: ACCU-CHEK COMFORT CURVE STRIP VI SCH ×2 (06:21→11:45)
[2019-10-02] MEDS: InsuLIN REG 1unit/0.01ml Soln (100units/ml) SC SCH ×2 (07:00→11:45)
[2019-10-02 07:21] LABS: Basophils # (auto) 0 uL; Basophils % (auto) 0.3 % (0.0-2.0); Eosinophils # (auto) 0 uL; Hematocrit 46.3 % (41.0-53.0); Hemoglobin 15.4 g/dL (13.5-17.5); Lymphocytes # (auto) 1.8 uL; Lymphocytes % (auto) 13.3 % (10.0-50.0); Mean Corpuscular Hemoglobin 30.6 pg (28.0-32.0); Mean Corpuscular Hgb Conc. 33.3 g/dL (32.0-36.0); Mean Corpuscular Volume 91.8 fL (80.0-100.0); Monocytes # (auto) 0.5 uL; Monocytes % (auto) 3.5 % (0.0-12.0); Neutrophils # (auto) 11.4 uL; Neutrophils % (auto) 82.9 % (37.0-80.0); Nucleated Red Blood Cells % 0.1 %; Platelet Count (auto) 225 10^3/uL (140-450); Red Blood Cells 5.04 10^6/uL (4.5-5.90); Red Cell Distribution Width 14.2 % (11.8-14.3); White Blood Cell 13.7 10^3/uL (4.4-10.8)
--- NOTE | 2019-10-02 07:30 | NUR ---
RECEIVED REPORT FROM NIGHT NURSE. PATIENT RESTING IN BED, NO DISTRESS NOTED. WILL CONTINUE TO MONITOR.
[2019-10-02 07:46] LABS: Albumin 3.5 g/dL (3.4-5.0); Calcium 9.4 mg/dL (8.5-10.1); Magnesium 2.2 mg/dL (1.6-2.6); Potassium 4.6 mmol/L (3.5-5.1)
[2019-10-02 07:51] LABS: BUN/Creatinine Ratio 15.3; Bilirubin, Total 0.8 mg/dL (0.2-1.0); Total Protein 7.3 g/dL (6.4-8.2)
[2019-10-02] MEDS: FUROSEMIDE 40 MG/4 ML VIAL IV SCH (09:51)
[2019-10-02] MEDS: LEVOFLOXACIN 500MG 100 ML IV SCH (09:51)
[2019-10-02] MEDS: ASPirin 81 mg TAB PO SCH (09:52)
[2019-10-02] MEDS: CARVEDILOL 3.125 MG TAB NG SCH (09:52)
[2019-10-02] MEDS: POTASSIUM CHL 20 Meq TABLET PO SCH (09:52)
[2019-10-02] MEDS: methylPREDNISolone SOD SUCC 125 MG/2 ML VL IV SCH (09:52)
[2019-10-02] MEDS: ENALAPRIL MALEATE 2.5 MG TAB PO SCH (09:52)
[2019-10-02] MEDS: ENOXAPARIN SOD 40 MG/0.4 ML SYRINGE SC SCH (09:55)
[2019-10-02] MEDS: NITROGLYCERIN 0.2MG/HR TOPICAL PATCH TD SCH (10:00)
[2019-10-02 10:40] VITALS: BP 117/80
--- NOTE | 2019-10-02 10:45 | NUR ---
PATIENT HAD 5 SECOND RUN OF VTACH, PATIENT WAS ASYMPTOMATIC. NOTIFIED DOCTOR PEPE. ORDERS RECEIVED FOR CARDIO CONSULT , WILL PLACE AND CARRY OUT.
--- NOTE | 2019-10-02 14:20 | NUR ---
DOCTOR KONSTANTIN AT BEDSIDE. PATIENT CLEARED TO D/C FROM CARDIO. PATIENT TO FOLLOW UP WITH [facility] FOR [facility] UNTIL INSURANCE BECOMES ACTIVE. HOME MEDICATION DOSE CHANGED, WILL NOTE IN DISCHARGE. ORDERS RECEIVED, WILL PLACE AND CARRY OUT.
[2019-10-02] MEDS ORDERED: CARVEDILOL 3.125 MG TAB PO ONE (14:45)
--- NOTE | 2019-10-02 16:27 | NUR ---
Discharge instructions given as ordered. Encourage to follow up with PMD as instructed. All questions and concerns addressed. Patient verbalized understanding. Medication reconciliation form completed and copy given to patient. Home medications held in Pharmacy returned to patient, and needed vaccines given. IV removed with catheter intact. Telemetry unit returned to ICU. Patient taken to vehicle via wheelchair with all personal belongings, accompanied by staff and family member. No distress noted at time of departure.
== END 2019-10-02 16:26 | disposition home or self-care (01) | DRG 291 ==
LOC: ER 09:10 → EDBD 09:10 → TELE 09:11 → TELE-WESTW 14:51
PROVIDERS: ADMIT Internal Medicine; ATTEND Internal Medicine
PROC: 5A09357 Assistance with Respiratory Ventilation, Less than 24 Consecutive Hours, Continuous Positive Airway Pressure (ICD-10-PCS; principal; 2019-09-30)
DX: I13.0 Hypertensive heart and chronic kidney disease with heart failure and stage 1 through stage 4 chronic kidney disease, or unspecified chronic kidney disease (principal); I50.43 Acute on chronic combined systolic (congestive) and diastolic (congestive) heart failure; J44.1 Chronic obstructive pulmonary disease with (acute) exacerbation; F17.210 Nicotine dependence, cigarettes, uncomplicated; I25.10 Atherosclerotic heart disease of native coronary artery without angina pectoris; E66.9 Obesity, unspecified; E11.65 Type 2 diabetes mellitus with hyperglycemia; E11.22 Type 2 diabetes mellitus with diabetic chronic kidney disease; I42.8 Other cardiomyopathies; N18.3 Chronic kidney disease, stage 3 (moderate); R06.03 Acute respiratory distress; E78.5 Hyperlipidemia, unspecified; D72.829 Elevated white blood cell count, unspecified; Z80.0 Family history of malignant neoplasm of digestive organs; Z87.01 Personal history of pneumonia (recurrent); Z68.36 Body mass index [BMI] 36.0-36.9, adult
CPT/HCPCS: 36415; 36600; 71045; 71275; 80053; 80061; 80307; 82550; 82805; 82962; 83036; 83735; 83880; 84443; 84484; 85025; 85379; 85610; 85730; 87070; 87205; 93005; 93971; 94640; 94644; 94660; 96365; 96372; 96375; G0378; J1815; J1956